=== PATIENT | female | born 1975 | race Hispanic/Latino ===

== ENCOUNTER 2020-04-04 00:26 | Emergency (ER) | payer BC ==
[~2020-04-04] VITALS: Ht 157.5 cm; Wt 81.6 kg
[2020-04-04] MEDS ORDERED: PANTOPRAZOLE 40 MG 10ML VIAL IV STA (00:40)
--- NOTE | 2020-04-04 00:51 | Emergency Department Note ---
History of Present Illnes History of Present Illness Chief Complaint: COVID PUI History of Present Illness This is a 45 year old female COVID POSITIVE AND NOW PRESENTS TO THE ED SECONDARY TO EPIGASTRIC PAIN X 3 DAYS WITH NAUSEA AND VOMITING. STATES HAS BEEN SICK FOR A WEEK AND NOW HAS HAD UPPER ABD PAIN FOR 3 DAYS. . Historian: Patient, Special Education Case Manager/EMS Arrival Mode: [place] Onset (how long ago): day(s) (3) Location: ABD Quality: PAIN, N.V Radiation: Reports non-radiation Severity: moderate Onset quality: gradual Duration (how long): day(s) (3) Timing of current episode: constant Progression: worsening Chronicity: new Context: Reports recent illness (COVID 19) Relieving factors: none Exacerbating factors: none Associated symptoms: Reports cough, Reports fever/chills, Reports nausea/vomiting, Reports shortness of breath Treatments prior to arrival: none Past Medical/Family History Physician Review I have reviewed the patient's past medical and family history. Any updates have been documented here. Past Medical History Recent Fever: Yes Clinical Suspicion of Infectio: Yes New/Unexplained Change in Ment: No Past Medical History: None Other Medical History: HYPOTHYROIDISM Other Surgery: THYROIDECTOMY Social History Smoking Cessation: Never Smoker Alcohol Use: None Any Illegal Drug Use: No Physically hurt or threatened: No Family History Family history of heart diseas: No Review of Systems Review of Systems Constitutional: Reports as per HPI EENTM: Reports no symptoms Cardiovascular: Reports no symptoms Respiratory: Reports as per HPI Gastrointestinal: Reports as per HPI Genitourinary: Reports no symptoms Musculoskeletal: Reports no symptoms Integumentary: Reports no symptoms Neurological: Reports no symptoms Psychological: Reports no symptoms Endocrine: Reports no symptoms Hematological/Lymphatic: Reports no symptoms Physical Exam Related Data Allergies: Coded Allergies: No Known Allergies (Unverified , 04/04/20) Triage Vital Signs Vital Signs Date Time Temp Pulse Resp B/P (MAP) Pulse Ox O2 Delivery O2 Flow Rate FiO2 04/04/20 00:37 98.2 97 20 153/98 100 Room Air Vital signs reviewed: Yes Physical Exam CONSTITUTIONAL Constitutional: Present well-developed, Present well-nourished, Present other (NO DISTRESS NOTED) HENT HENT: Present normocephalic, Present atraumatic, Present oropharynx clear/moist, Present nose normal HENT L/R: Present left ext ear normal, Present right ext ear normal EYES Eyes: Reports PERRL, Reports conjunctivae normal NECK Neck: Present ROM normal PULMONARY Pulmonary: Present effort normal, Present breath sounds normal CARDIOVASCULAR Cardiovascular: Present regular rhythm, Present heart sounds normal, Present capillary refill normal, Present normal rate GASTROINTESTINAL Abdominal: Present soft, Present bowel sounds normal, Present tender (MODERATE TO UPPER ABDOMEN) GENITOURINARY Genitourinary: Present exam deferred SKIN Skin: Present warm, Present dry MUSCULOSKELETAL Musculoskeletal: Present ROM normal NEUROLOGICAL Neurological: Present alert, Present oriented x 3, Present no gross motor or sensory deficits PSYCHOLOGICAL Psychological: Present mood/affect normal, Present judgement normal Results Laboratory Laboratory Laboratory Tests Test 04/04/20 02:00 04/04/20 00:55 04/04/20 00:40 Urine Test Negative (NEGATIVE) Urine Color Yellow (YELLOW) Urine Clarity Clear (CLEAR) Urine pH 7 (5 - 7) Urine Specific [place] 1.015 (1.010-1.025) Urine Protein Negative (NEGATIVE) Urine Glucose (UA) Negative (NEGATIVE) Urine Ketones Negative (NEGATIVE) Urine Blood Negative (NEGATIVE) Urine Nitrite Negative (NEGATIVE) Urine Bilirubin Negative (NEGATIVE) Urine Urobilinogen 0.2 mg/dL (0.2 - 1) Urine Leukocyte Esterase Negative (NEGATIVE) Urine RBC None /HPF (0-5) Urine WBC >50 /HPF (0-5) Urine Epithelial Cells Many /LPF (NONE) Urine Bacteria Many /HPF (NONE) White Blood Count 4.28 x10e3/uL (4.8-10.8) Red Blood Count 4.91 x10e6/uL (3.6-5.1) Hemoglobin 15.3 g/dL (12.0-16.0) Hematocrit 45.2 % (34.2-44.1) Mean Corpuscular Volume 92.1 fL (81-99) Mean Corpuscular Hemoglobin 31.2 pg (28-32) Mean Corpuscular Hemoglobin Concent 33.8 g/dL (31-35) Red Cell Distribution Width 11.4 % (11.7-14.4) Platelet Count 108 x10e3/uL (140-360) Neutrophils (%) (Auto) 53.1 % (38.7-80.0) Lymphocytes (%) (Auto) 34.3 % (18.0-39.1) Monocytes (%) (Auto) 11.9 % (4.4-11.3) Eosinophils (%) (Auto) 0.0 % (0.0-6.0) Basophils (%) (Auto) 0.2 % (0.0-1.0) Neutrophils # (Auto) 2.3 (2.1-6.9) Lymphocytes # (Auto) 1.5 (1.0-3.2) Monocytes # (Auto) 0.5 (0.2-0.8) Eosinophils # (Auto) 0.0 (0.0-0.4) Basophils # (Auto) 0.0 (0.0-0.1) Absolute Immature Granulocyte (auto 0.02 x10e3/uL (0-0.1) Sodium Level 137 mmol/L (136-145) Potassium Level 3.5 mmol/L (3.5-5.1) Chloride Level 101 mmol/L (98-107) Carbon Dioxide Level 25 mmol/L (22-29) Anion Gap 14.5 mmol/L (8-16) Blood Urea Nitrogen < 5 mg/dL (7-26) Creatinine 0.68 mg/dL (0.57-1.11) Estimat Glomerular Filtration Rate > 60 ML/MIN (60-) BUN/Creatinine Ratio 7 (6-25) Glucose Level 108 mg/dL (74-118) Calcium Level 7.5 mg/dL (8.4-10.2) Total Bilirubin 0.4 mg/dL (0.2-1.2) Aspartate Amino Transf (AST/SGOT) 64 IU/L (5-34) Alanine Aminotransferase (ALT/SGPT) 77 IU/L (0-55) Alkaline Phosphatase 61 IU/L (40-150) Total Protein 7.5 g/dL (6.5-8.1) Albumin 3.3 g/dL (3.5-5.0) Globulin 4.2 g/dL (2.3-3.5) Albumin/Globulin Ratio 0.8 (0.8-2.0) Amylase Level 59 U/L (25-125) Lipase 46 U/L (8-78) Lab results reviewed: Yes Imaging Imaging results reviewed: Yes Impressions CT ABD/PELVIS IMPRESSION: 1. Findings compatible with multifocal viral pneumonia. 2. A 1.6 cm cyst in the right paracolic gutter abuts the appendix tip could represent mucinous pathology. Recommend follow-up abdominal CT with contrast in 6 months. This finding was discussed with Dr. Sepulveda at 4:40 AM on 04/04/[address] Padilla via telephone. 3. Fibroid uterus. Assessment & Plan Medical Decision Making MDM PT WHO IS COVID 19 POSITIVE PRESENTS WITH ABD PAIN FOR 3 DAYS CBC, CMP, AMYLASE, LIPASE, UA, CT ABD/PELVIS ORDERED TO EVAL FOR PANCREATITIS, UTI, COLITIS, GALLSTONES, DIVERTICULITIS, ELEVATED LFT'S. PROTONIX 40 MG IV ORDERED PT FOUND TO HAVE UTI IN ADDITION TO HAVING COVID 19. PT DISCHARGED WITH PROTONIX 40 MG PO QD#15, ZOFRAN ODT 4 MG 1 SL Q 6 HOURS PRN N AUSEA, OMNICEF 300 MG ONE PO BID FOR 10 DAYS #20 Reassessment Reassessment time: 04:32 Reassessment PT STILL WITH EPIGASTRIC PAIN. WENT OVER LABS, CT RESULT WITH PT. Assessment & Plan Final Impression: (1) COVID-19 (2) Abdominal pain (3) UTI (urinary tract infection) Depart Disposition: HOME, SELF-CARE Last Vital Signs Date Time Temp Pulse Resp B/P (MAP) Pulse Ox O2 Delivery O2 Flow Rate FiO2 04/04/20 00:37 98.2 97 20 153/98 100 Room Air Medications in the ED Pantoprazole Sodium 40 mg NOW STAT IV ; Start 04/04/20 at 00:40; Stop 04/04/20 at 00:41; Status UNV SUMAN SEUPLVEDA MD Apr 04, 2020 00:51
[2020-04-04 00:58] LABS: BASOPHILS % 0.2 % (0.0-1.0); HEMATOCRIT 45.2 % (34.2-44.1); HEMOGLOBIN 15.3 g/dL (12.0-16.0); LYMPHOCYTES # (AUTO) 1.5 (1.0-3.2); LYMPHOCYTES % 34.3 % (18.0-39.1); MEAN CORPUSCULAR HEMOGLOBIN 31.2 pg (28-32); MEAN CORPUSCULAR HGB CONC 33.8 g/dL (31-35); MEAN CORPUSCULAR VOLUME 92.1 fL (81-99); MONOCYTES # (AUTO) 0.5 (0.2-0.8); MONOCYTES % 11.9 % (4.4-11.3); NEUTROPHILS # (AUTO) 2.3 (2.1-6.9); NEUTROPHILS % 53.1 % (38.7-80.0); PLATELET COUNT 108 x10e3/uL (140-360); RED BLOOD COUNT 4.91 x10e6/uL (3.6-5.1); RED CELL DISTRIBUTION WIDTH 11.4 % (11.7-14.4)
[2020-04-04 01:20] LABS: ALANINE AMINOTRANSFERASE 77 IU/L (0-55); ALBUMIN 3.3 g/dL (3.5-5.0); ALBUMIN/GLOBULIN RATIO 0.8 (0.8-2.0); ALKALINE PHOSPHATASE 61 IU/L (40-150); ANION GAP 14.5 mmol/L (8-16); BLOOD UREA NITROGEN < 5 mg/dL (7-26); CALCIUM 7.5 mg/dL (8.4-10.2); CARBON DIOXIDE 25 mmol/L (22-29); CHLORIDE 101 mmol/L (98-107); CREATININE, SERUM 0.68 mg/dL (0.57-1.11); EST GLOMERULAR FILTRATION RATE > 60 ML/MIN (60-); GLUCOSE 108 mg/dL (74-118); POTASSIUM 3.5 mmol/L (3.5-5.1); SODIUM 137 mmol/L (136-145)
[2020-04-04 01:23] LABS: BUN/CREATININE RATIO 7 (6-25)
[2020-04-04 01:47] LABS: AMYLASE 59 U/L (25-125); LIPASE 46 U/L (8-78)
[2020-04-04 02:06] LABS: CLARITY,URINE CLEAR (CLEAR); COLOR,URINE YELLOW (YELLOW); LEUKOCYTE ESTERASE ,URINE NEGATIVE (NEGATIVE); NITRITE,URINE NEGATIVE (NEGATIVE)
[2020-04-04 02:07] LABS: BACTERIA,URINE MANY /HPF; BILIRUBIN,URINE NEGATIVE (NEGATIVE); EPITHELIAL CELLS,URINE MANY /LPF; KETONES,URINE NEGATIVE (NEGATIVE); PROTEIN,URINE DIPSTICK NEGATIVE (NEGATIVE); URINE UROBILINOGEN 0.2 mg/dL (0.2 - 1); WBC,URINE (MAN) >50 /HPF (0-5)
[2020-04-04] MEDS ORDERED: CEFTRIAXONE SOD 1 GM/NS 50 ML 50 ML IV ONE (02:15)
[2020-04-04] MEDS ORDERED: IOPAMIDOL 370 MG/ML 200 ML INFUS..BTL INJ ONE (03:10)
[2020-04-04] MEDS ORDERED: SODIUM CHLORIDE 0.9% 50ML 50 ML ONE (03:10)
--- NOTE | 2020-04-04 04:44 | Diagnostic Imaging Report ---
EXAM: CT Abdomen and Pelvis WITH contrast INDICATION: Abdominal pain COMPARISON: None. TECHNIQUE: Abdomen and pelvis were scanned utilizing a multidetector helical scanner from the lung base to the pubic symphysis after administration of IV contrast. Coronal and sagittal reformations were obtained. Routine protocol was performed. Scan was performed when during portal venous phase. IV CONTRAST: 100 mL of Isovue 370 ORAL CONTRAST: None COMPLICATIONS: None RADIATION DOSE: Total DLP: 794 mGy*cm Estimated effective dose: (DLP x 0.015 x size factor) mSv CTDIvol has been reviewed. It is below the limits set by the Radiation Protocol Committee (RPC). Dose modulation, iterative reconstruction, and/or weight based adjustment of the mA/kV was utilized to reduce the radiation dose to as low as reasonably achievable. FINDINGS: LINES and TUBES: None. LOWER THORAX: Multifocal groundglass and consolidative opacities in the lower lungs HEPATOBILIARY: A few simple appearing hepatic cysts in both lobes. No focal hepatic lesions. No biliary ductal dilation. GALLBLADDER: No radio-opaque stones or sludge. No wall thickening. SPLEEN: No splenomegaly. PANCREAS: No focal masses or ductal dilatation. ADRENALS: No adrenal nodules KIDNEYS/URETERS: Kidneys enhance symmetrically. No hydronephrosis. No cystic or solid mass lesions. No stones. GI TRACT: No abnormal distention, wall thickening, or evidence of bowel obstruction. A 1.6 cm cyst in the right paracolic gutter abuts the appendix tip (series 2 image 43), otherwise the appendix is normal. PELVIC ORGANS/BLADDER: Multi fibroid uterus including a 3.4 cm hyperdense fibroid. LYMPH NODES: No lymphadenopathy. VESSELS: Unremarkable. PERITONEUM / RETROPERITONEUM: No free air or fluid. BONES: Unremarkable. SOFT TISSUES: Unremarkable. IMPRESSION: 1. Findings compatible with multifocal viral pneumonia. 2. A 1.6 cm cyst in the right paracolic gutter abuts the appendix tip could represent mucinous pathology. Recommend follow-up abdominal CT with contrast in 6 months. This finding was discussed with Dr. Vásquez at 4:40 AM on 04/04/[address] Padilla via telephone. 3. Fibroid uterus. Signed by: Jeromy Padilla DO on 04/04/2020 4:41 AM
[2020-04-04 04:53] VITALS: BP 113/92
== END 2020-04-04 05:23 | disposition home or self-care (01) ==
LOC: ER 00:50
DX: U07.1 COVID-19 (principal); N39.0 Urinary tract infection, site not specified; R50.9 Fever, unspecified; R10.13 Epigastric pain; R11.2 Nausea with vomiting, unspecified; R05 Cough
CPT/HCPCS: 36415; 74177; 80053; 81001; 81025; 82150; 83690; 85025; 99284; C9113; J0696; Q9967

== ENCOUNTER 2021-04-08 21:02 | Emergency (ER) | payer BC ==
[~2021-04-08] VITALS: Ht 157.5 cm; Wt 81.6 kg
[2021-04-08] MEDS ORDERED: SODIUM CHLORIDE 0.9% 1000ML 1,000 ML IV SCH (21:30)
[2021-04-08 22:06] LABS: BASOPHILS % 0.3 % (0.0-1.0); CLARITY,URINE SL CLOUDY (CLEAR); COLOR,URINE YELLOW (YELLOW); EOSINOPHILS # (AUTO) 0.3 (0.0-0.4); EOSINOPHILS % 7.7 % (0.0-6.0); HEMATOCRIT 38.8 % (34.2-44.1); HEMOGLOBIN 12.9 g/dL (12.0-16.0); KETONES,URINE 2+ (NEGATIVE); LEUKOCYTE ESTERASE ,URINE NEGATIVE (NEGATIVE); LYMPHOCYTES # (AUTO) 0.8 (1.0-3.2); LYMPHOCYTES % 23.7 % (18.0-39.1); MEAN CORPUSCULAR HEMOGLOBIN 32.7 pg (28-32); MEAN CORPUSCULAR HGB CONC 33.2 g/dL (31-35); MEAN CORPUSCULAR VOLUME 98.2 fL (81-99); MONOCYTES # (AUTO) 0.3 (0.2-0.8); MONOCYTES % 10.5 % (4.4-11.3); NEUTROPHILS # (AUTO) 1.8 (2.1-6.9); NEUTROPHILS % 56.3 % (38.7-80.0); NITRITE,URINE NEGATIVE (NEGATIVE); PLATELET COUNT 130 x10e3/uL (140-360); PROTEIN,URINE DIPSTICK NEGATIVE (NEGATIVE); RED BLOOD COUNT 3.95 x10e6/uL (3.6-5.1); RED CELL DISTRIBUTION WIDTH 11.9 % (11.7-14.4); URINE UROBILINOGEN 0.2 mg/dL (0.2 - 1)
[2021-04-08] MEDS ORDERED: CEFTRIAXONE 1 GM VIAL IV ONE (22:15)
[2021-04-08] MEDS ORDERED: CEFDINIR300 MG PO (22:15)
[2021-04-08 22:16] LABS: BACTERIA,URINE MODERATE /HPF; EPITHELIAL CELLS,URINE MODERATE /LPF; RBC,URINE 0-5 /HPF (0-5)
[2021-04-08 22:23] LABS: ALBUMIN 3.4 g/dL (3.5-5.0); ALBUMIN/GLOBULIN RATIO 0.9 (0.8-2.0); ANION GAP 12.7 mmol/L (8-16); CALCIUM 7.1 mg/dL (8.4-10.2); CREATININE, SERUM 0.82 mg/dL (0.57-1.11); POTASSIUM 3.7 mmol/L (3.5-5.1)
[2021-04-08] MEDS ORDERED: CEFTRIAXONE 1 GM in SODIUM CHLORIDE 0.9% 50ML 50 ML IV ONE ×4 (22:30)
== END 2021-04-08 23:53 | disposition home or self-care (01) ==
LOC: ER 21:20
DX: R50.9 Fever, unspecified (principal); M54.5 Low back pain; N39.0 Urinary tract infection, site not specified; E03.9 Hypothyroidism, unspecified
CPT/HCPCS: 36415; 80053; 81001; 83605; 84702; 85025; 87086; 99284; J0696; J7030